=== PATIENT | male | born 1965 | race Hispanic/Latino ===

== ENCOUNTER 2017-07-07 12:32 | Emergency (ER) | payer SELFPAY ==
[2017-07-07 13:14] LABS: Basophils % (Auto) 0.7 % (0.0-1.8); Eosinophils % (Auto) 0.3 % (0.0-4.3); Hematocrit 45.8 % (35.5-45.6); Hemoglobin 15.4 gm/dl (11.8-15.2); Lymphocytes % (Auto) 17.2 % (13.4-35.0); Mean Corpuscular HGB Conc 34 % (32-34); Mean Corpuscular Hemoglobin 28 pg (28-32); Mean Corpuscular Volume 82 fl (84-94); Monocytes # (Auto) 0.5 K/mm3 (0.0-0.8); Monocytes % (Auto) 8.8 % (0.0-7.3); Platelet Count 150 K/mm3 (140-440); Red Blood Count 5.57 M/mm3 (3.65-5.03); Red Cell Distribution Width 12.6 % (13.2-15.2)
[2017-07-07 13:17] LABS: INR 0.92 (0.87-1.13)
[2017-07-07 13:18] LABS: Partial Thromboplastin Time 26.7 Sec. (24.2-36.6)
[2017-07-07 13:25] LABS: BUN/Creatinine Ratio 11; Blood Urea Nitrogen 11 mg/dL (9-20); Hemolysis Index 32
--- NOTE | 2017-07-07 13:48 | Emergency Department Report ---
ED General Adult HPI - General Chief complaint: Dizziness Stated complaint: DIZZY Time Seen by Provider: 07/07/17 13:31 Source: patient, RN notes reviewed Mode of arrival: Ambulatory Limitations: No Limitations - History of Present Illness Initial comments: This is a 52-year-old male who was previously unknown to this provider. Patient reports a past medical history of hypertension. Current primary care physician is Dr. Adam Patient is sent to the ER for evaluation of abnormal EKG and dizziness by his primary care doctor. Patient is a former professional application designer, reports that he walks/runs 2 miles 4 days a week, works out quite a bit, and also coaches baseball. He's been having nonspecific dizziness for the past few months. He describes this as shortness of breath. There is no change or decrease in exercise tolerance. There is no chest pain. There are no DVT or pulmonary embolus risk factors. There is no vomiting or diaphoresis. There is no aspirin or cocaine use. He reports that sometimes he gets out of breath when he exerts himself vigorously while working out or coaching baseball. His symptoms do not radiate anywhere. -: Gradual, week(s), month(s) Consistency: intermittent Improves with: rest Worsens with: movement Associated Symptoms: shortness of breath. denies: confusion, cough, diaphoresis , fever/chills, headaches, loss of appetite, malaise, nausea/vomiting, rash, seizure, syncope, weakness - Related Data Allergies Allergy/AdvReac Type Severity Reaction Status Date / Time No Known Allergies Allergy Unverified 07/07/17 12:43 ED Review of Systems ROS: Stated complaint: DIZZY Other details as noted in HPI Comment: All other systems reviewed and negative ED Past Medical Hx - Past Medical History Previous Medical History?: Yes Hx Hypertension: Yes Additional medical history: dizziness and fatigue - Surgical History Past Surgical History?: No - Social History Smoking Status: Never Smoker Substance Use Type: Alcohol, Marijuana, Prescribed ED Physical Exam - General Limitations: No Limitations General appearance: alert, in no apparent distress - Head Head exam: Present: atraumatic, normocephalic - Eye Eye exam: Present: normal appearance, PERRL, EOMI, other (visual acuity intact to finger counting, color perception, reading at a close distance). Absent: nystagmus - ENT ENT exam: Present: normal exam, normal orophraynx, mucous membranes moist, normal external ear exam - Neck Neck exam: Present: normal inspection, full ROM - Respiratory Respiratory exam: Present: normal lung sounds bilaterally. Absent: respiratory distress - Cardiovascular Cardiovascular Exam: Present: regular rate, normal rhythm, normal heart sounds. Absent: bradycardia, tachycardia, irregular rhythm, systolic murmur, diastolic murmur, rubs, gallop - GI/Abdominal GI/Abdominal exam: Present: soft, normal bowel sounds. Absent: distended, tenderness, guarding, rebound, rigid, pulsatile mass - Rectal Rectal exam: Present: deferred - Extremities Exam Extremities exam: Present: normal inspection, full ROM, normal capillary refill. Absent: pedal edema, joint swelling, calf tenderness - Back Exam Back exam: Present: normal inspection, full ROM. Absent: tenderness, CVA tenderness (R), paraspinal tenderness, vertebral tenderness - Neurological Exam Neurological exam: Present: alert (there is no pass pointing. Normal heel-to- hunter. There is negative Romberg examination.), oriented X3, CN II-XII intact, normal gait, other (Extraocular movements intact. Tongue midline. No facial droop. Facial sensation intact to light touch in the V1, V2, V3 distribution bilaterally. 5 and 5 strength in 4 extremities.. Sensation is intact to light touch in 4 extremities.). Absent: motor sensory deficit - Psychiatric Psychiatric exam: Present: normal affect, normal mood - Skin Skin exam: Present: warm, dry, intact, normal color. Absent: rash ED Course Vital Signs 07/07/17 12:43 Temperature 98.1 F Pulse Rate 86 Respiratory 18 Rate Blood Pressure 171/108 O2 Sat by Pulse 100 Oximetry ED Medical Decision Making - Lab Data Result diagrams: 07/07/17 12:56 07/07/17 12:56 Vital Signs 07/07/17 12:43 Temperature 98.1 F Pulse Rate 86 Respiratory 18 Rate Blood Pressure 171/108 O2 Sat by Pulse 100 Oximetry Labs 07/07/17 07/07/17 07/07/17 12:56 12:56 12:56 WBC 6.1 RBC 5.57 H Hgb 15.4 H Hct 45.8 H MCV 82 L MCH 28 MCHC 34 RDW 12.6 L Plt Count 150 Lymph % (Auto) 17.2 [place] % (Auto) 8.8 H Eos % (Auto) 0.3 Baso % (Auto) 0.7 Lymph # 1.0 L [place] # 0.5 Eos # 0.0 Baso # 0.0 Seg Neutrophils % 73.0 H Seg Neutrophils # 4.5 PT 12.8 INR 0.92 APTT 26.7 Thrombin Time Sodium 134 L Potassium 3.5 L Chloride 97.4 L Carbon Dioxide 23 Anion Gap 17 BUN 11 Creatinine 1.0 Estimated GFR > 60 BUN/Creatinine Ratio 11 Glucose 119 H Calcium 9.0 Troponin T < 0.010 07/07/17 12:56 WBC RBC Hgb Hct MCV MCH MCHC RDW Plt Count Lymph % (Auto) [place] % (Auto) Eos % (Auto) Baso % (Auto) Lymph # [place] # Eos # Baso # Seg Neutrophils % Seg Neutrophils # PT INR APTT Thrombin Time 16.0 Sodium Potassium Chloride Carbon Dioxide Anion Gap BUN Creatinine Estimated GFR BUN/Creatinine Ratio Glucose Calcium Troponin T - EKG Data -: EKG Interpreted by Me EKG shows normal: sinus rhythm, axis, intervals, QRS complexes - EKG Data When compared to previous EKG there are: previous EKG unavailable 07/07/17 14:02 Normal sinus, 66 bpm, motion artifact, biphasic T-wave in V4 and V5, abnormal EKG, not having chest pain, not consistent with a STEMI. There is no prior EKG available for comparison. - Radiology Data Radiology results: image reviewed interpreted by me: X-ray the chest, interpreted by me: No acute disease - Medical Decision Making Differential diagnosis, including but not limited to: Incidental abnormal EKG, elevated blood pressure, acute coronary syndrome Assessment and plan: 52-year-old male who is a former professional application designer, has no pulmonary embolus or DVT risk factors, is low risk by well's criteria, without chest pain. Has a GCS of 15, with an NIH score of 0. He walks with a steady gait. Troponin negative 1, symptoms have been going on for weeks. EKG is abnormal without prior for comparison. Patient is smiling and laughing and talking very animatedly with ER staff. Based on duration of sy symptoms, patient is at low risk for major adverse cardiac event. He is suitable to follow up with outpatient cardiology for evaluation of his abnormal EKG and elevated blood pressure. His physical exam findings and EKG were presented to the covering antisqueak chalker, Dr. Thomas, via his nurse practitioner, Yi Damon. It is my opinion and cardiology teams opinion that patient is suitable to follow up for outpatient evaluation. The patient was informed of this and verbalizes understanding. Critical care attestation.: If time is entered above; I have spent that time in minutes in the direct care of this critically ill patient, excluding procedure time. ED Disposition Clinical Impression: Abnormal EKG, Elevated blood pressure reading Disposition: DC- TO HOME OR SELFCARE Is pt being admited?: No Does the pt Need Aspirin: No Condition: Good Instructions: Hypertension (ED) Additional Instructions: Continue outpatient medications. Follow-up with cardiology within the next 3-5 days. Patient can contact cardiology the following phone number to obtain expedited appointment; [phone]. When contacting this number, inform the office staff that this provider has discussed the case with Dr. Thomas, who agrees that patient should be seen for expedited outpatient follow-up. Blood pressure was elevated, and this should also be followed up by either primary care or cardiology within the next month. Return to the ER right away with new pain, worsened pain, migration of pain, fevers, chills, lethargy, irritability, projectile vomiting, change in mental status, confusion, inability to tolerate liquid feeds. Referrals: CHRISTIANO THOMAS MD [Staff Physician] - 3-5 Days [facility] [Provider Group] - 3-5 Days [facility] [Provider Group] - 3-5 Days
--- NOTE | 2017-07-07 14:18 | XRay Report ---
AP CHEST: HISTORY: chest pain AP view of the chest demonstrates a normal mediastinal and cardiac contour with clear lungs and normal bony and soft tissue structures. IMPRESSION: Unremarkable AP chest.
--- NOTE | 2017-07-07 14:18 | Cat Scan Report ---
CT HEAD WITHOUT CONTRAST: HISTORY: Dizziness, hypertension. TECHNIQUE: Sequential 2.5mm CT images. COMPARISON: none. FINDINGS: Cerebral Parenchyma: Within normal limits. Cerebellum: Within normal limits. Brainstem: Within normal limits. Ventricles: Normal. Sella: Normal. Extra-axial spaces: Normal. Basal Cisterns: Normal. Intracranial Hemorrhage: None. Midline Shift: None. Calvarium: Normal. Sinuses: Normal. Mastoid Air Cells: Normal. Visualized Orbits: Normal. IMPRESSION: Cranial CT scan within normal limits.
[2017-07-07] MEDS ORDERED: NACL 0.9% 1000 ML 1,000 ML IV ONE (14:19)
[2017-07-07 14:52] VITALS: BP 152/87
== END 2017-07-07 15:52 | disposition home or self-care (01) ==
LOC: ED 12:32
DX: R94.31 Abnormal electrocardiogram [ECG] [EKG] (principal); I10 Essential (primary) hypertension; F12.10 Cannabis abuse, uncomplicated
CPT/HCPCS: 36415; 70450; 71045; 80048; 84484; 85025; 85610; 85670; 85730; 93005; 93010; 99284